=== PATIENT | female | born 2005 | race Caucasian/White ===

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

== ENCOUNTER 2025-01-03 00:07 | Inpatient (IN) | payer MEDICAID ==
[2025-01-03] MEDS ORDERED: Terbutaline 1 MG/ML SDV SUBCUT PRN (02:47)
[2025-01-03] MEDS ORDERED: Butorphanol 2 MG/ML SDV IVPUSH PRN (02:50)
[2025-01-03] MEDS ORDERED: Sodium Chloride 0.9% 20 ML SDV IV PRN (02:50)
[2025-01-03] MEDS ORDERED: Misoprostol 200 MCG Tab PO PRN (02:50)
[2025-01-03] MEDS ORDERED: Carboprost Tromethamine 250 MCG/1 mL Vial IM PRN (02:50)
[2025-01-03] MEDS ORDERED: Ondansetron 4 MG/2 ML SDV IVPUSH PRN (02:50)
[2025-01-03] MEDS ORDERED: Sodium Chloride 0.9% 2.5 ML Syringe FLUSH PRN (02:50)
[2025-01-03] MEDS ORDERED: Water For Irrigation,Sterile 1,000 ML Container IRR PRN (02:50)
[2025-01-03] MEDS ORDERED: Methylergonovine 0.2 MG/1 ML Amp IM PRN (02:50)
[2025-01-03] MEDS ORDERED: Lidocaine 1% 50 ML MDV INJECT PRN (02:50)
[2025-01-03 03:00] LABS: HEMATOCRIT 33.8 % (37.0-47.0); HEMOGLOBIN 11.2 g/dL (12.0-16.0); MEAN CORPUSCULAR HEMOGLOBIN 27.3 pg (28.0-32.0); MEAN CORPUSCULAR HGB CONC 33.1 g/dL (32.0-36.0); MEAN CORPUSCULAR VOLUME 82.4 fL (83.0-99.0); MEAN PLATELET VOLUME 9.6 fL (9.4-12.3); PLATELET COUNT,PLT 217 K/uL (150-400); WHITE BLOOD CELL COUNT,WBC 10.15 K/uL (4.5-13.5)
[2025-01-03] MEDS ORDERED: Oxytocin/0.9 % Sodium Chloride 30 UNIT/500 ML BAG IV SCH (03:00)
[2025-01-03] MEDS: Misoprostol 25 MCG (1/4 of 100 MCG) Tab VAG PRN ×2 (03:09→22:23)
[2025-01-03] MEDS: Calcium Carbonate 500 MG Tab.Chew PO PRN (03:40)
[2025-01-03] MEDS ORDERED: Lidocaine 2% 11 ML Jelly Filled Syringe MUCMEM SCH (04:00)
[2025-01-03] MEDS: Lactated Ringers 1,000 ML IV SCH (07:32)
[2025-01-04] MEDS ORDERED: Ropivacaine 0.5% 5 MG/ML 30 ML SDV ONE (16:36)
[2025-01-04] MEDS ORDERED: EPINEPHrine 1 MG/1 ML Amp ONE (16:36)
[2025-01-04] MEDS ORDERED: ceFAZolin 1 GM Vial ONE (16:36)
[2025-01-04] MEDS ORDERED: fentaNYL 100 MCG/2 ML SDV ONE (16:36)
[2025-01-04] MEDS ORDERED: Bupivacaine 0.25% 30 ML SDV ONE (16:36)
[2025-01-04] MEDS ORDERED: Morphine PF 10 MG/10 ML SDV ONE (16:36)
[2025-01-04] MEDS ORDERED: Ketorolac 30 MG/ML SDV ONE (16:36)
[2025-01-04] MEDS ORDERED: Oxytocin 10 Units/1 ML SDV ONE (16:36)
[2025-01-04] MEDS ORDERED: Ondansetron 4 MG/2 ML SDV ONE (16:36)
[2025-01-04] MEDS ORDERED: Phenylephrine HCl In 0.9% NaCl 1 MG/10 ML Syringe ONE ×2 (16:53→17:43)
[2025-01-04] MEDS ORDERED: Phenylephrine HCl In 0.9% NaCl 1 MG/10 ML Syringe IVPUSH PRN (18:31)
[2025-01-04] MEDS ORDERED: Naloxone 0.4 MG/ML SDV IVPUSH PRN (18:31)
[2025-01-04] MEDS ORDERED: ePHEDrine 50 MG/ML SDV IM PRN (18:31)
[2025-01-04] MEDS ORDERED: fentaNYL 50 MCG/ML SDV IVPUSH PRN (18:31)
[2025-01-04] MEDS ORDERED: fentaNYL 100 MCG/2 ML SDV IVPUSH PRN (18:31)
[2025-01-04] MEDS ORDERED: HYDROmorphone 1 MG/ML Syringe IVPUSH PRN (18:31)
[2025-01-04] MEDS ORDERED: diphenhydrAMINE 50 MG/ML SDV IVPUSH PRN (18:31)
[2025-01-04] MEDS ORDERED: Ondansetron 4 MG/2 ML SDV IVPUSH PRN ×3 (18:31→18:45)
[2025-01-04] MEDS ORDERED: Albuterol 0.083% 2.5 MG/3 ML Neb Soln NEB PRN (18:31)
[2025-01-04] MEDS ORDERED: Metoclopramide 10 MG/2 ML SDV IVPUSH PRN (18:31)
[2025-01-04] MEDS ORDERED: Acetaminophen/oxyCODONE 325-5 MG Tab PO PRN (18:31)
[2025-01-04] MEDS ORDERED: Morphine 2 MG/ML SYRINGE IVPUSH PRN (18:31)
[2025-01-04] MEDS ORDERED: Misoprostol 200 MCG Tab RECTAL PRN (18:45)
[2025-01-04] MEDS ORDERED: oxyCODONE 5 MG Tab PO PRN (18:45)
[2025-01-04] MEDS ORDERED: Carboprost Tromethamine 250 MCG/1 mL Vial IM PRN (18:45)
[2025-01-04] MEDS ORDERED: Oxytocin/0.9 % Sodium Chloride 30 UNIT/500 ML BAG IV SCH (18:45)
[2025-01-04] MEDS ORDERED: Sodium Chloride 0.9% 2.5 ML Syringe FLUSH PRN (18:45)
[2025-01-04] MEDS ORDERED: Sodium Chloride 0.9% 10 ML Syringe FLUSH PRN (18:45)
[2025-01-04] MEDS ORDERED: Lanolin 100% Cream 7 GM Tube TOP PRN (18:45)
[2025-01-04 18:57] LABS: PH,UMBILICAL ARTERIAL 7.27 (7.18-7.38); PH,UMBILICAL VENOUS 7.33 (7.25-7.45)
[2025-01-04] MEDS: Acetaminophen 1,000 MG in Premix Bag 1 BAG IV SCH (19:41)
[2025-01-04] MEDS ORDERED: Acetaminophen 500 MG Tab PO SCH (20:00)
[2025-01-04] MEDS: Nalbuphine 10 MG/1 ML Vial IVPUSH PRN (23:00)
[2025-01-04] MEDS: Ketorolac 30 MG/ML SDV IVPUSH SCH (23:01)
[2025-01-04] MEDS: Docusate Sodium 100 MG Cap PO SCH (23:01)
[2025-01-05 05:56] LABS: BASOPHILS ABSOLUTE AUTO 0.01 K/uL (0.00-0.30); BASOPHILS PERCENT AUTO 0.1 % (0.0-1.0); HEMATOCRIT 33.9 % (37.0-47.0); HEMOGLOBIN 11.1 g/dL (12.0-16.0); IMMATURE GRAN ABSOLUTE AUTO 0.08 K/uL (0.00-0.05); IMMATURE GRAN PERCENT AUTO 0.4 % (0.0-0.4); LYMPHOCYTES ABSOLUTE AUTO 0.65 K/uL (2.00-8.80); LYMPHOCYTES PERCENT AUTO 3.5 % (50.0-65.0); MEAN CORPUSCULAR HEMOGLOBIN 27.2 pg (28.0-32.0); MEAN CORPUSCULAR HGB CONC 32.7 g/dL (32.0-36.0); MEAN CORPUSCULAR VOLUME 83.1 fL (83.0-99.0); MEAN PLATELET VOLUME 9.6 fL (9.4-12.3); MONOCYTES PERCENT AUTO 4.3 % (2.0-10.0); NEUTROPHILS ABSOLUTE AUTO 17.21 K/uL (1.50-8.50); NEUTROPHILS PERCENT AUTO 91.7 % (35.0-45.0); PLATELET COUNT,PLT 220 K/uL (150-400); RED BLOOD CELL COUNT 4.08 M/uL (4.10-5.30); WHITE BLOOD CELL COUNT,WBC 18.75 K/uL (4.5-13.5)
[2025-01-05] MEDS ORDERED: oxyCODONE 5 MG Tab PO PRN (18:45)
[2025-01-05] MEDS ORDERED: Acetaminophen 500 MG Tab PO SCH (20:00)
[2025-01-05] MEDS: Acetaminophen 500 MG Tab PO SCH (21:46)
[2025-01-05] MEDS: Ibuprofen 800 MG Tab PO SCH (21:47)
[2025-01-06] MEDS: Methylergonovine 0.2 MG/1 ML Amp IM ONE (07:43)
[2025-01-06] MEDS: Measles, Mumps & Rubella Vaccine 0.5 ML SDV SUBCUT ONE (07:43)
== END 2025-01-06 13:29 | disposition home or self-care (01) | DRG 786 ==
LOC: MW.OBCHECK 00:07 → MW.OB 00:08 → MW.OBCHECK 00:08 → MW.OB 01:43 → UNDOADMOB 01:43 → MW.OB 01:43 → OBSVTOIN 18:45 → INTOOBSV 18:45 → MW.OB 01-04 17:21 → UNDODISIN 01-06 13:29
PROVIDERS: ADMIT Obstetrics & Gynecology; ATTEND Obstetrics & Gynecology
PROC: 30233S1 Transfusion of Nonautologous Globulin into Peripheral Vein, Percutaneous Approach (ICD-10-PCS; 2025-01-04)
PROC: 10D00Z1 Extraction of Products of Conception, Low, Open Approach (ICD-10-PCS; principal; 2025-01-04 17:00)
DX: O48.0 Post-term pregnancy (principal); G93.5 Compression of brain; O99.892 Other specified diseases and conditions complicating childbirth; O99.02 Anemia complicating childbirth; O34.211 Maternal care for low transverse scar from previous cesarean delivery; D50.9 Iron deficiency anemia, unspecified; O99.344 Other mental disorders complicating childbirth; Z3A.40 40 weeks gestation of pregnancy; Z37.0 Single live birth; Z79.899 Other long term (current) drug therapy
CPT/HCPCS: 01961; 36415; 59025; 59514; 64488; 76805; 76805-26; 82803; 85025; 85027; 85460; 86592; 86850; 86900; 86901; A9270-GY; J0131; J0665; J0690; J1100; J1885; J2274; J2300; J2371; J2405; J2590; J2791; J2795; J3010; J7120

== ENCOUNTER 2025-01-12 23:25 | Emergency (ER) | payer MEDICAID ==
[2025-01-12] MEDS ORDERED: Sodium Chloride 0.9% 2.5 ML Syringe FLUSH PRN (23:45)
[2025-01-12] MEDS ORDERED: Sodium Chloride 0.9% 10 ML Syringe FLUSH PRN (23:45)
[2025-01-13 01:06] LABS: BASOPHILS ABSOLUTE AUTO 0.02 K/uL (0.00-0.30); BASOPHILS PERCENT AUTO 0.2 % (0.0-1.0); EOSINOPHILS ABSOLUTE AUTO 0.22 K/uL (0.00-0.70); EOSINOPHILS PERCENT AUTO 2.7 % (0.0-5.0); HEMATOCRIT 39.5 % (37.0-47.0); IMMATURE GRAN ABSOLUTE AUTO 0.03 K/uL (0.00-0.05); IMMATURE GRAN PERCENT AUTO 0.4 % (0.0-0.4); LYMPHOCYTES ABSOLUTE AUTO 1.42 K/uL (2.00-8.80); LYMPHOCYTES PERCENT AUTO 17.5 % (50.0-65.0); MEAN CORPUSCULAR HEMOGLOBIN 27.3 pg (28.0-32.0); MEAN CORPUSCULAR HGB CONC 32.9 g/dL (32.0-36.0); MEAN CORPUSCULAR VOLUME 82.8 fL (83.0-99.0); MEAN PLATELET VOLUME 8.8 fL (9.4-12.3); MONOCYTES ABSOLUTE AUTO 0.66 K/uL (0.10-1.40); MONOCYTES PERCENT AUTO 8.1 % (2.0-10.0); NEUTROPHILS ABSOLUTE AUTO 5.77 K/uL (1.50-8.50); NEUTROPHILS PERCENT AUTO 71.1 % (35.0-45.0); PLATELET COUNT,PLT 328 K/uL (150-400); RED BLOOD CELL COUNT 4.77 M/uL (4.10-5.30); WHITE BLOOD CELL COUNT,WBC 8.12 K/uL (4.5-13.5)
[2025-01-13 01:28] LABS: A/G RATIO 0.9 (0.9-1.6); ALBUMIN 3.4 g/dL (3.4-5.0); BILIRUBIN TOTAL 0.2 mg/dL (0.2-1.0); CALCIUM 9.5 mg/dL (8.5-10.1); CARBON DIOXIDE,CO2 27.2 mmol/L (21.0-32.0); CREATININE 0.8 mg/dL (0.6-1.0); EST CRCL DRUG DOSING (CG) 81.24 mL/min; POTASSIUM,K 4.4 mmol/L (3.5-5.1); PROTEIN TOTAL,TP 7.4 g/dL (6.4-8.2)
[2025-01-13 01:33] LABS: APPEARANCE,URINE CLEAR; BILIRUBIN,URINE NEGATIVE (NEGATIVE); COLOR,URINE YELLOW; GLUCOSE,URINE NEGATIVE (NEGATIVE); KETONES,URINE NEGATIVE (NEGATIVE); LEUKOCYTE ESTERASE,URINE NEGATIVE (NEGATIVE); NITRITE,URINE NEGATIVE (NEGATIVE); OCCULT BLOOD,URINE NEGATIVE (NEGATIVE); PH,URINE 6.5 (5.0-8.0); PROTEIN,URINE NEGATIVE (NEGATIVE); UROBILINOGEN,URINE 0.2 EU/dL (<2.0)
[2025-01-13] MEDS: Ketorolac 30 MG/ML SDV IVPUSH ONE (02:29)
== END 2025-01-13 02:41 | disposition home or self-care (01) ==
LOC: MW.ED 23:25
DX: R10.31 Right lower quadrant pain (principal); Z91.048 Other nonmedicinal substance allergy status; Z79.899 Other long term (current) drug therapy
CPT/HCPCS: 36415; 80053; 81003; 85025; 96374; 99284; J1885; 99283